=== PATIENT | male | born 1985 | race Caucasian/White ===

== ENCOUNTER 2022-10-09 13:42 | Emergency (ER) | payer BC, SELFPAY ==
[2022-10-09 13:49] VITALS: BP 111/75; PULSE 62; RESP 18; TEMP 36.4; O2SAT 98; BMI 25.8
[2022-10-09 16:00] VITALS: BP 0/0; PULSE 0; RESP 0; TEMP -17.7; TEMP 0
== END 2022-10-09 16:00 | disposition home or self-care (01) ==
LOC: ER 13:56 → UTC 13:57
PROVIDERS: Emergency Provider Nurse Practitioner Family
DX: Z53.21 Procedure and treatment not carried out due to patient leaving prior to being seen by health care provider (principal)